=== PATIENT | female | born 1990 | race Caucasian/White ===

== ENCOUNTER 2017-01-03 18:30 | Inpatient (IN) | payer OTHER ==
[~2017-01-03] VITALS: Ht 152.4 cm; Wt 77.3 kg
--- NOTE | 2017-01-03 18:37 | TRIAGE ---
OB Triage Datetime Report Generated by CPN: 01/03/2017 18:37 Datetime: 01/03/2017 18:25 Time of Arrival: 01/03/2017 18:25 Arrived By: Wheelchair Arrived From: Home Chief Complaint: C/O UC.S Movement: Present Time Contractions Began: 01/03/2017 15:00 Rupture of Membranes: Denies Vaginal Discharge: Denies Recent Sexual Intercouse: Denies Abdominal Trauma: Not Applicable Initial Plan: PRESTON /-2
[2017-01-03] MEDS: LACTATED RINGER'S 1,000 ML IV SCH ×2 (18:58→20:37)
[2017-01-03] MEDS ORDERED: BUTORPHANOL 2 MG INJ IV PRN (19:00)
[2017-01-03] MEDS ORDERED: OXYTOCIN 30 UNITS/LR 500 ML IV SCH ×2 (19:00)
[2017-01-03] MEDS ORDERED: LACTATED RINGER'S 1,000 ML IV PRN (19:00)
[2017-01-03] MEDS ORDERED: CARBOPROST 250 MCG INJ IM PRN (19:00)
[2017-01-03] MEDS ORDERED: MISOPROSTOL 200 MCG TAB PR PRN (19:00)
[2017-01-03] MEDS ORDERED: IBUPROFEN 600 MG TAB PO PRN (19:00)
[2017-01-03] MEDS ORDERED: OXYTOCIN 30 UNITS/LR 500 ML IV PRN (19:00)
[2017-01-03] MEDS ORDERED: AMPICILLIN 2 GM/NS (PMX) 100 ML IV ONE (19:00)
[2017-01-03] MEDS ORDERED: METHYLERGONOVINE 0.2 MG INJ IM PRN (19:00)
[2017-01-03] MEDS ORDERED: LIDOCAINE 1% (MPF) 30 ML INJ INJ PRN (19:00)
[2017-01-03 19:05] LABS: BASOPHILS % 0.4 % (0.0-2.0); EOSINOPHILS % 0.3 % (0.0-7.0); HEMATOCRIT 40.4 % (37.0-47.0); HEMOGLOBIN 12.8 g/dl (12.0-16.0); LYMPHOCYTES # 3.5 10^3/ul (0.8-2.9); LYMPHOCYTES % 31.8 % (15.0-51.0); MEAN CORPUSCULAR HEMOGLOBIN 24.4 pg (29.0-33.0); MEAN CORPUSCULAR HGB CONC 31.7 g/dl (32.0-37.0); MEAN PLATELET VOLUME 10.1 fl (7.4-10.4); MONOCYTE # 0.7 10^3/ul (0.3-0.9); MONOCYTES % 6.7 % (0.0-11.0); NEUTROPHIL # 6.4 10^3/ul (1.6-7.5); NEUTROPHILS % 59.2 % (39.0-77.0); PLATELET COUNT 315 10^3/UL (140-415); RED BLOOD COUNT 5.25 10^6/ul (4.20-5.40); RED CELL DISTRIBUTION WIDTH 15.8 % (11.5-14.5); WHITE BLOOD COUNT 10.9 10^3/ul (4.8-10.8)
[2017-01-03] MEDS ORDERED: FENTAnyl 2MCG/ML-ROPIV 0.2% 100 ML ONE (19:09)
[2017-01-03 19:22] LABS: INR 0.97; PROTIME 12.9 Sec (12.2-14.2)
[2017-01-03 19:23] LABS: PARTIAL THROMBOPLASTIN TIME 26.5 Sec (25.0-35.0)
[2017-01-03 20:32] VITALS: Ht 152.4 cm; Wt 77.3 kg
[2017-01-03 21:04] LABS: BARBITURATES Negative (NEGATIVE); CANNABINOIDS Negative (NEGATIVE); COCAINE Negative (NEGATIVE)
--- NOTE | 2017-01-03 21:30 | RADRPT ---
PROCEDURE: Obstetrical ultrasound. CLINICAL INDICATION: , evaluation. Pelvic pain. TECHNIQUE: Transabdominal sonographic images of the uterus obtained after first trimester , greater than 14 weeks gestation. Single intrauterine gestation present. COMPARISON: No prior studies are available for comparison. FINDINGS: Single intrauterine gestation. There is a cephalic presentation. Measurements were made in order to determine age. The results are as follows: BPD = 35 weeks 6 day(s) HC = 36 weeks 1 day(s) AC = 41 weeks 1 day(s) FL = 38 weeks 4 day(s) Heart rate = 154 beats per minute The placenta is fundal. There is no evidence for an abruption or placenta previa. Ovaries are not visualized. IMPRESSION: Single intrauterine gestation of approximately 38 weeks 0 days by ultrasound criteria. [place] estimated weight = 3738 g; 81 percentile for gestational age of 38 weeks 4 days. Head circumference and biparietal diameter appear mildly under measured and abdominal circumference appears slightly over measured but are still within the standard deviation for gestational age. RPTAT: AADD .Armen Aponte MD, MD Date Time Electronically viewed and signed by .Armen Aponte MD, on 01/03/2017 21:30 .B/
--- NOTE | 2017-01-03 21:35 | LDN ---
Date/Time of Note Date/Time of Note DATE: 01/03/17 TIME: 21:31 Delivery Summary Normal spontaneous vaginal delivery of a baby boy from OA position shoulders delivered without any difficulty rest of the baby's body followed cord was clamped after stopped pulsation placenta spontaneous expulsion inspected complete estimated blood loss 200 mL vaginal perineal inspection no laceration Weeks of Gestation Term Placenta Delivered: Spontaneously Meconium: none Episiotomy: No Laceration repair: None Anesthesia type: Epidural Sponge & Needle done & correct: Yes All needle counts correct: Yes Any foreign bodies felt in the: No Problems: Delivery Information Sex Infant Sex: male Apgars 1 Minute: 9 5 Minute: 9 Suctioning Nose & mouth suctioned at betito: Yes Delee suction performed: No Umbilical Cord Umbilical cord with: 3 Vessels Cord presentations: nuchal cord Nuchal cord present X: 2 Cord Blood was obtained: Yes JONO CHESTER MD Jan 03, 2017 21:35
--- NOTE | 2017-01-03 21:42 | HP ---
Date/Time of Note Date/Time of Note DATE: 01/03/17 TIME: 21:36 OB - History Hx of Present Free Text/Dictation 26 years old female admitted to [facility] in labor pelvic examination on admission cervix 5 cm dilated 80% effaced presenting part vertex at -2 station with bulging bag patient directed from triage unit to labor and delivery. Chief Complaint: Labor pain and contractions Estimated Due Date: Jan 13, 2017 : 4 Para: 3 Care: Good Care Ultrasounds: Normal mid trimester US Obstetrical Complications: None Medical Complications: None Past Family/Social History * Past Medical, Surgical, Family and Obstetric Histories reviewed from chart. Rubella: immune RPR/VDRL: Negative GBS Status: Negative HBsAG: Negative OB Admission Exam Physical Exam HEENT: WNL Heart: Rhythm Normal Lungs: Clear, Equal Abdomen: WNL Extremities: Normal Cervical Dilatation: 5cm Effacement: 100% Station: -3 Membranes: Intact Heart Rate: 130's Accelerations: Accelerations Present Decelerations: Early Decelerations Varibility: Moderate Contractions on Admission: < 5 Minutes Apart Intensity: Firm Last 72 hours Lab Results CBC & BMP 01/03/17 18:48 JONO CHESTER MD Jan 03, 2017 21:41
[2017-01-03 22:11] LABS: BENZODIAZEPINES NEGATIVE (NEGATIVE); OPIATES NEGATIVE (NEGATIVE)
[2017-01-03] MEDS ORDERED: AMPICILLIN 1 GM/NS (PMX) 50 ML IV SCH (23:00)
[2017-01-03 23:35] VITALS: BP 118/55; PULSE 78; RESP 18
[2017-01-04] MEDS ORDERED: ACETAMINOPHEN 325 MG TAB PO PRN
[2017-01-04] MEDS ORDERED: BENZOCAINE 20% 56 ML SPRAY TOP PRN
[2017-01-04] MEDS ORDERED: ONDANSETRON 4 MG INJ IV PRN
[2017-01-04] MEDS ORDERED: ACETAMINOPHEN/CODEINE #3 TAB PO PRN ×2
[2017-01-04] MEDS ORDERED: OXYCODONE/ASPIRIN (4.88/325) TAB PO PRN ×2
[2017-01-04] MEDS ORDERED: WITCH HAZEL/GLYCERIN PAD PR PRN
[2017-01-04] MEDS ORDERED: DIBUCAINE 1% 30 GM OINT PR PRN
[2017-01-04] MEDS ORDERED: LANOLIN 7 GM TUBE TOP PRN
[2017-01-04] MEDS: IBUPROFEN 600 MG TAB PO SCH ×5 (00:10→23:29)
[2017-01-04 03:30] VITALS: BP 126/63; PULSE 70; RESP 18
[2017-01-04] MEDS: OXYTOCIN 30 UNITS/LR 500 ML IV SCH (03:56)
[2017-01-04 08:15] VITALS: BP 110/58; PULSE 69; RESP 20
[2017-01-04] MEDS: SENNA/DOCUSATE NA (8.6MG/50MG) TAB PO SCH ×2 (08:49→21:27)
[2017-01-04 10:29] LABS: BASOPHILS % 0.3 % (0.0-2.0); EOSINOPHILS % 0.2 % (0.0-7.0); HEMATOCRIT 36.4 % (37.0-47.0); HEMOGLOBIN 11.3 g/dl (12.0-16.0); LYMPHOCYTES # 2.6 10^3/ul (0.8-2.9); LYMPHOCYTES % 24.9 % (15.0-51.0); MEAN CORPUSCULAR HEMOGLOBIN 23.9 pg (29.0-33.0); MEAN CORPUSCULAR VOLUME 77.1 fl (82.0-101.0); MEAN PLATELET VOLUME 10.3 fl (7.4-10.4); MONOCYTE # 0.6 10^3/ul (0.3-0.9); MONOCYTES % 6.1 % (0.0-11.0); NEUTROPHIL # 7.1 10^3/ul (1.6-7.5); NEUTROPHILS % 67.6 % (39.0-77.0); PLATELET COUNT 255 10^3/UL (140-415); RED BLOOD COUNT 4.72 10^6/ul (4.20-5.40); RED CELL DISTRIBUTION WIDTH 15.7 % (11.5-14.5); WHITE BLOOD COUNT 10.5 10^3/ul (4.8-10.8)
--- NOTE | 2017-01-04 10:35 | PN ---
Date/Time of Note Date/Time of Note DATE: 01/04/17 TIME: 10:32 OB Subjective Subjective Subjective January 04, 2017 Post day 1 Doing Well Afebrile Ambulatory Chest Clear Breasts are soft , Nipples are intact Abdomen is soft Fundus is firm Moderate amount of lochia No calf tenderness No ankle edema Laboratory Tests Test 01/03/17 18:48 01/03/17 20:00 01/04/17 09:55 White Blood Count 10.910^3/ul 10.510^3/ul Red Blood Count 5.2510^6/ul 4.7210^6/ul Hemoglobin 12.8g/dl 11.3g/dl Hematocrit 40.4% 36.4% Mean Corpuscular Volume 77.0fl 77.1fl Mean Corpuscular Hemoglobin 24.4pg 23.9pg Mean Corpuscular Hemoglobin Concent 31.7g/dl 31.0g/dl Red Cell Distribution Width 15.8% 15.7% Platelet Count 51605^3/UL 51217^3/UL Mean Platelet Volume 10.1fl 10.3fl Neutrophils % 59.2% 67.6% Lymphocytes % 31.8% 24.9% Monocytes % 6.7% 6.1% Eosinophils % 0.3% 0.2% Basophils % 0.4% 0.3% Nucleated Red Blood Cells % 0.0/100WBC 0.0/100WBC Neutrophils # 6.410^3/ul 7.110^3/ul Lymphocytes # 3.510^3/ul 2.610^3/ul Monocytes # 0.710^3/ul 0.610^3/ul Eosinophils # 0.010^3/ul 0.010^3/ul Basophils # 0.010^3/ul 0.010^3/ul Nucleated Red Blood Cells # 0.010^3/ul 0.010^3/ul Prothrombin Time 12.9Sec Prothrombin Time Ratio 1.0 INR International Normalized Ratio 0.97 Activated Partial Thromboplast Time 26.5Sec Urine Opiates Screen NEGATIVE Urine Barbiturates Negative Urine Amphetamines Screen Negative Urine Benzodiazepines Screen NEGATIVE Urine Cocaine Screen Negative Urine Cannabinoids Negative Current Medications Medications (Trade) Dose Ordered Sig/Qian Route PRN Reason Start Time Stop Time Status Last Admin Dose Admin Lactated Ringer's 1,000 ml @ 125 mls/hr Q8H IV 7/26/17 18:46 01/03/17 23:58 DC 01/03/17 20:37 Ampicillin 100 ml @ 100 mls/hr ONCE ONCE IV 01/03/17 19:00 01/03/17 19:59 DC 01/03/17 18:58 Ampicillin (Ampicillin 1 Gm/ NS (Pmx)) 50 ml @ 100 mls/hr Q4H IV 01/03/17 23:00 01/03/17 23:58 DC Butorphanol Tartrate (Stadol) 2 mg Q2H PRN IV PAIN 01/03/17 19:00 01/03/17 23:58 DC Lidocaine 30 ml 30 ml ONCE PRN INJ EPISIOTOMY/TEARING 01/03/17 19:00 01/03/17 23:58 DC Oxytocin/Lactated Ringer's 500 ml @ 125 mls/hr ONCE -MAY REPEAT X1 IV 01/03/17 19:00 01/03/17 23:58 DC 01/03/17 21:54 Oxytocin/Lactated Ringer's 500 ml @ 125 mls/hr ONCE IV 01/03/17 19:00 01/03/17 23:58 DC 01/03/17 21:55 Ibuprofen 600 mg 600 mg ONCE PRN PO Mild Pain (Pain Score 1-3) 01/03/17 19:00 01/03/17 23:58 DC Lactated Ringer's 1,000 ml @ 2,000 mls/hr Q30M PRN IV PRE-EPIDURAL BOLUS 01/03/17 19:00 01/03/17 23:58 DC 01/03/17 20:37 Oxytocin/Lactated Ringer's 500 ml @ 0 mls/hr ONCE PRN IV For Hemorrhage Management 01/03/17 19:00 01/03/17 23:58 DC Methylergonovine Maleate (Methergine) 0.2 mg ONCE PRN IM VAGINAL BLEEDING 01/03/17 19:00 01/03/17 23:58 DC Carboprost Tromethamine (Hemabate) 250 mcg ONCE PRN IM VAGINAL BLEEDING 01/03/17 19:00 01/03/17 23:58 DC Misoprostol 1000 mcg 1,000 mcg ONCE PRN [place] VAGINAL BLEEDING 01/03/17 19:00 01/03/17 23:58 DC Fentanyl/ Ropivacaine 100 ml @ ud STK-MED ONCE .ROUTE 01/03/17 19:09 01/03/17 19:38 DC Oxytocin/Lactated Ringer's 500 ml @ 125 mls/hr Q4H IV 01/03/17 23:56 01/04/17 07:55 DC Ibuprofen (Motrin) 600 mg Q6 PO 01/04/17 00:00 01/04/17 06:06 Acetaminophen (Tylenol Tab) 650 mg Q4H PRN PO PAIN LEVEL 1-5 01/04/17 00:00 01/04/17 08:49 Acetaminophen/ Codeine Phosphate (Tylenol No.3) 1 tab Q4H PRN PO PAIN LEVEL 1-5 01/04/17 00:00 Acetaminophen/ Codeine Phosphate (Tylenol No.3) 2 tab Q4H PRN PO PAIN LEVEL 6-10 01/04/17 00:00 Oxycodone/Aspirin (Percodan) 1 tab Q3H PRN PO PAIN LEVEL 1-5 01/04/17 00:00 Oxycodone/Aspirin (Percodan) 2 tab Q3H PRN PO PAIN LEVEL 6-10 01/04/17 00:00 Ondansetron HCl (Zofran Inj) 4 mg Q6H PRN IV NAUSEA AND/OR VOMITING 01/04/17 00:00 Senna/Docusate Sodium (Senokot-S) 1 tab BID PO 01/04/17 09:00 01/04/17 08:49 Witch Leatha/ Glycerin (Tucks Pads) 1 pad BEDSIDE MEDICATION PRN [place] HEMORRHOID/EPISIOTMY PAIN 01/04/17 00:00 Benzocaine (Dermoplast [place]) 1 spray BEDSIDE MEDICATION PRN TOP HEMORRHOID/EPISIOTMY PAIN 01/04/17 00:00 Dibucaine (Nupercainal) 1 applic BEDSIDE MEDICATION PRN [place] HEMORRHOID/EPISIOTMY PAIN 01/04/17 00:00 Lanolin (Zze-H-Gcryze) 1 applic BEDSIDE MEDICATION PRN TOP BEDSIDE FOR SEAN TO NIPPLES 01/04/17 00:00 Measles/Mumps/ Rubella Vaccine Live (Mmr Ii Vaccine) 0.5 ml ONCE ONCE SC* 01/05/17 09:00 01/05/17 09:01 New born is doing well, Breast feeding JASS JUAREZ MD Jan 04, 2017 10:35
[2017-01-04 12:24] VITALS: BP 123/60; PULSE 80; RESP 20
[2017-01-04 15:40] VITALS: BP 114/58; PULSE 70; RESP 18
[2017-01-04 19:45] VITALS: BP 101/59; PULSE 67; RESP 18
[2017-01-05 04:00] VITALS: BP 108/70; PULSE 80; RESP 18
[2017-01-05] MEDS: IBUPROFEN 600 MG TAB PO SCH ×2 (05:42→11:26)
[2017-01-05] MEDS: OXYTOCIN 30 UNITS/LR 500 ML IV SCH (07:26)
[2017-01-05] MEDS: SENNA/DOCUSATE NA (8.6MG/50MG) TAB PO SCH (08:58)
[2017-01-05] MEDS ORDERED: MEASLES,MUMPS,RUBELLA VACCINE INJ SC* ONE (09:00)
--- NOTE | 2017-01-05 10:21 | DS ---
Date/Time of Note Date/Time of Note DATE: 01/05/17 TIME: 10:19 Discharge Summary Admission/Discharge Info Admit Date/Time Jan 03, 2017 at 18:37 Discharge Date/Time January 05, 2017 1050 Discharge Diagnosis Day 2 post normal vaginal delivery Patient Condition: Good Procedures Normal vaginal delivery Hx of Present Illness Term in labor Hospital Course Satisfactory uneventful Home Meds No Active Prescriptions or Reported Meds Follow-up Plan Appointment clinic in 2 weeks for follow-up Primary Care Provider Care Physician No Primary Time spent on discharge: < 30 minutes JONO CHESTER MD Jan 05, 2017 10:21
== END 2017-01-05 11:15 | disposition home or self-care (01) | DRG 775 ==
LOC: OBT 18:30 → L-D 18:31 → OBT 18:36 → L-D 18:37 → PP1 23:30
PROVIDERS: ADMIT Obstetrics & Gynecology; ATTEND Obstetrics & Gynecology
PROC: 10E0XZZ Delivery of Products of Conception, External Approach (ICD-10-PCS; principal; 2017-01-03)
DX: O80 Encounter for full-term uncomplicated delivery (principal); Z87.891 Personal history of nicotine dependence; Z37.0 Single live birth; Z3A.38 38 weeks gestation of pregnancy
CPT/HCPCS: 62319; 76815; 80307; 85025; 85610; 85730; 86592; 86900; 86901; G0463; J0290; J2590; J3010; J7120